=== PATIENT | female | born 1980 | race Caucasian/White ===

== ENCOUNTER 2018-11-26 06:14 | Emergency (ER) | payer SELFPAY ==
[~2018-11-26] VITALS: Ht 165.1 cm; Wt 68.0 kg
[2018-11-26 08:50] VITALS: BP 114/95
== END 2018-11-26 09:01 | disposition home or self-care (01) ==
LOC: ER 06:14
DX: H73.893 Other specified disorders of tympanic membrane, bilateral (principal); H69.83 Other specified disorders of Eustachian tube, bilateral; Z86.79 Personal history of other diseases of the circulatory system
CPT/HCPCS: 99283